=== PATIENT | female | born 1965 | race American Indian/Alaskan Native ===

== ENCOUNTER 2018-06-27 10:43 | Emergency (ER) | payer OTHER, BC ==
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
--- NOTE | 2018-06-27 12:01 | XRay Report ---
LUMBOSACRAL SPINE, 3 VIEWS: History: Back pain Findings: The vertebral bodies, disk spaces and posterior elements are intact. No compression deformity or malalignment. The SI joints are symmetric and unremarkable. Impression: No evidence for acute injury to the lumbar spine.
--- NOTE | 2018-06-27 12:02 | XRay Report ---
CERVICAL SPINE, 3 views: History: Neck pain. Findings: The vertebral bodies, disk spaces, posterior elements and prevertebral soft tissues are unremarkable. The dens is intact. Mild degenerative disc disease is noted at C5-6 and C6-7. No acute fracture or malalignment is identified. Impression: Mild cervical spondylosis. No evidence for acute injury to the cervical spine.
--- NOTE | 2018-06-27 12:03 | XRay Report ---
ROUTINE CHEST, TWO VIEWS: HISTORY: chest pain. The trachea, heart, mediastinal contour, lung mendoza and bony thorax are unremarkable. IMPRESSION: Unremarkable chest x-ray.
[2018-06-27] MEDS ORDERED: IBUPROFEN PO ONE (12:43)
[2018-06-27] MEDS ORDERED: ZOFRAN ODT PO ONE (12:43)
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
[2018-06-27 13:04] VITALS: BP 125/81
== END 2018-06-27 13:19 | disposition home or self-care (01) ==
LOC: ED 10:43
DX: M79.18 Myalgia, other site (principal); V49.49XA Driver injured in collision with other motor vehicles in traffic accident, initial encounter; Y93.89 Activity, other specified; Y92.488 Other paved roadways as the place of occurrence of the external cause; Y99.8 Other external cause status
CPT/HCPCS: 71046; 72040; 72100; 93005; 93010; Q0162